=== PATIENT | female | born 1960 | race Caucasian/White ===

== ENCOUNTER 2020-07-23 19:25 | Emergency (ER) | payer SELFPAY ==
[2020-07-23 19:52] VITALS: BP 143/65; PULSE 82; RESP 20; TEMP 37.1; O2SAT 98; BMI 34.9
--- NOTE | 2020-07-23 20:34 | XR_ITS ---
EXAMINATION: XR CHEST CLINICAL INFORMATION: Shortness of breath COMPARISON: None TECHNIQUE: Frontal view of the chest was obtained. FINDINGS: Cardiac silhouette is normal in size. Lungs are well aerated. There is no lobar consolidation. No pleural effusion or pneumothorax. XR/XR chest 1V IMPRESSION: No acute pulmonary pathology.
[2020-07-23] MEDS: predniSONE 20 MG TABLET 40 MG PO (20:41)
--- NOTE | 2020-07-23 20:42 | PC.NURSE ---
PT COMING IN FROM HOME VIA PRIVATE VEHICLE FOR COMPLAINTS OF SOB, PT HAS HX OF ASTHMA. PT CURRENTLY IN NAD, BREATHING EQUAL AND NON LABORED. MILD WHEEZING IN LOWER MORE. DENIES USING MEDICATIONS PRIOR TO ARRIVAL. PT 98% ON RA. DENIES COUGH FEVERS AND CHILKS. ARON MORELAND TO SEE PATIENT. PT MEDICATED BY THIS RM WITH PO PREDNISONE. RT AT BEDSIDE WITH BREATHING TREATMENT
[2020-07-23] MEDS: Albuterol/Iprat 2.5/0.5MG 3 ML AMPUL.NEB INHALE (21:00)
--- NOTE | 2020-07-23 21:44 | PC.NURSE ---
PT STATES IM FEELING BETTER PT CHG INTO HER CLOTHES AND AWAITING FOR D/C PAPERWORK.
--- NOTE | 2020-09-25 22:45 | ED.ASTHMA ---
HPI - Asthma General Chief Complaint: Asthma Stated Complaint: asthma Time Seen by Provider: 07/23/20 20:32 Source: patient Mode of arrival: ambulatory Limitations: no limitations History of Present Illness HPI Narrative: Patient has history of asthma been short of breath and with dry cough for last 2 days taking Tessalon prescribed by PCP not working MD complaint: asthma attack and shortness of breath Onset (ago): day(s) (2) Severity: moderate Associated symptoms: dry cough Asthma History: adult onset Treatments Prior to Arrival: inhaled bronchodilator Related Data Previous Rx's Medication Instructions Recorded albuterol sulfate [ProAir HFA] 2 puff INHALATION Q6H PRN #18 g 07/23/20 prednisone 40 mg PO DAILY #10 tab 07/23/20 Allergies Allergy/AdvReac Type Severity Reaction Status Date / Time acetaminophen Allergy Itching Verified 07/23/20 19:49 [From Darvocet-N] codeine Allergy Itching Verified 07/23/20 19:49 propoxyphene Allergy Itching Verified 07/23/20 19:49 [From Darvocet-N] terbinafine [From Lamisil] Allergy Itching Verified 07/23/20 19:49 tetanus and diphtheria Allergy Swelling Verified 07/23/20 19:49 toxoids Review of Systems Review of Systems: Constitutional : No Weight loss, No Fever, No Chills ENT/Mouth : No sore throat, No Rhinorrhea Eyes: No Eye Pain, No Swelling Cardiovascular : No Chest Pain, no palpitations Respiratory :dry Cough, No Sputum, ++shortness of breath Gastrointestinal : no Nausea, No Vomiting, No Diarrhea, No abdominal Pain, no black stools Genitourinary : No Dysuria, No Urinary Frequency Musculoskeletal : No joint pain, No Myalgias, No Joint Swelling Skin : No Skin Lesions, No rash Neuro : No Weakness, No Numbness, No Dizziness, No Headache Psych : No Anxiety/Panic, No Depression Heme/Lymph: No Bruising, No Lymphadenopathy Endocrine : No Polyuria, No Polydipsia All other systems reviewed and are negative PMFSH Past Medical History Medical History Asthma Cholecystectomy planned Hypertension Migraine Social History Social History Advance Directives: No Advance Directives Information Provided: No Physical Exam Vital Signs: Vital Signs: Last Vital Signs Temp 98.8 F 07/23/20 19:52 Pulse 82 07/23/20 19:52 Resp 20 07/23/20 19:52 BP 143/65 H 07/23/20 19:52 Pulse Ox 98 07/23/20 19:52 Body Mass Index 34.9 Appearance: Alert. Oriented X3. No acute distress. Eyes: Pupils equal, round and reactive to light. ENT: Pharynx normal. Neck: Normal inspection. Neck supple. CVS: Normal heart rate and rhythm. Pulses normal. Respiratory: No respiratory distress. Rhonchi ++ wheezing++ no rales/crackles Abdomen: Soft and nontender. Bowel sounds are present, no mass palpable, no CVA tenderness Skin: Skin warm and dry. Normal skin color. Normal skin turgor. Extremities: No lower extremity edema. Neuro: Oriented X 3. No motor deficit. No sensory deficit. Course Course Course Narrative: Patient with asthma came with the increased shortness of breath similar to previous attacks chest x-ray negative for any acute infiltrate saturating 98% room air your discharge him home on prednisone and to continue nebulizing treatment at home Discharge Plan Discharge Clinical Impression: Asthma with acute exacerbation Qualifiers: Asthma severity: moderate Asthma persistence: unspecified Qualified Code(s): J45.901 - Unspecified asthma with (acute) exacerbation Patient Disposition: Home, Self-Care Instructions: Asthma (ED) Additional Instructions: use inhaler as advised. Take prednisone as prescribed. Follow-up with primary care doctor if not better Prescriptions: New albuterol sulfate [ProAir HFA] 90 mcg/actuation HFA aerosol inhaler 2 puff inhalation Q6H PRN (Reason: shortness of breath or wheezing) Qty: 18 RF: 0 prednisone 20 mg tablet 40 mg PO DAILY Qty: 10 RF: 0 Interventions: ED Discharge Assessment Last Done: 07/23/20 22:09 Discharge Date/Time: 07/23/20 22:11
== END 2020-07-23 22:11 | disposition home or self-care (01) ==
PROVIDERS: Emergency Provider Internal Medicine
DX: J45.909 Unspecified asthma, uncomplicated (principal)
CPT/HCPCS: 71045; 99283